=== PATIENT | male | born 1995 | race Caucasian/White ===

== ENCOUNTER 2023-03-04 21:28 | Emergency (ER) | payer SELFPAY ==
[2023-03-04 21:34] VITALS: BP 130/80; PULSE 95; RESP 16; TEMP 36.6; BMI 36.6
--- NOTE | 2023-03-04 21:44 | XR_ITS ---
[address] [address] Patient Name: DEBRA COSTELLO MRN: [id number] date: 1995 Sex: M Assigned Patient Location: ER Current Patient Location: ER Accession/Order Number: [id number] Exam Date: 03/04/2023 21:55 Report Date: 03/04/2023 22:20 At the request of: SALLIE TRENT Procedure: XR chest 2V EXAMINATION: XR chest 2V HISTORY: Cough and congestion COMPARISON: None. TECHNIQUE: PA and lateral chest x-rays FINDINGS: The lung parenchyma is free of consolidation or infiltrate. No pneumothorax or pleural effusion. The cardiac, mediastinal and hilar contours are normal. The visualized osseous structures exhibit no gross abnormality. XR/XR chest 2V IMPRESSION: No acute cardiopulmonary abnormality. Electronically authenticated by: SUNIL NOBLES Date: 03/04/2023 22:20
--- NOTE | 2023-03-04 21:45 | ED_ITS ---
HPI - URI/Sore Throat General Chief Complaint: Upper Respiratory Infection Stated Complaint: URTI Time Seen by Provider: 03/04/23 21:36 Source: patient Limitations: no limitations History of Present Illness HPI Narrative: presents complaining of cough, sweating and sore throat past couple of days. Exposed to sick child. Not short of breath. No fever, nausea. chest feels tight . Does not smoke cigarettes. Denies history of asthma MD elicited complaint: Reports cough and sore throat Related Data Home Medications Medication Instructions Recorded Confirmed lamotrigine 150 mg tablet 150 mg PO DAILY 03/04/23 03/04/23 oxybutynin chloride 5 mg tablet 5 mg PO DAILY 03/04/23 03/04/23 Allergies Allergy/AdvReac Type Severity Reaction Status Date / Time No Known Drug Allergies Allergy Verified 03/04/23 21:39 Review of Systems ROS Status of ROS 10 or more systems reviewed and unremarkable except as noted in history and below Exam Constitutional Vital Signs, click to edit/add: Last Vital Signs Temp 98 F 03/04/23 21:34 Pulse 95 H 03/04/23 21:34 Resp 16 03/04/23 21:34 BP 130/80 03/04/23 21:34 Common normals: no apparent distress, average body habitus, oriented x3, no limitations, healthy appearing, alert and well nourished [facility] Common normals: normocephalic and head/scalp atraumatic Eye Common normals: PERRL, EOMs intact bilaterally and conjunctivae normal Chest Common normals: inspection of chest normal Respiratory Common normals: normal respiratory effort, no retractions, no use of accessory muscles and clear to auscultation bilaterally Cardio Common normals: regular rate, regular rhythm, S1 normal heart sound and S2 normal heart sound GI Common normals: Normal to inspection, nondistended, normoactive bowel sounds present, soft to palpation and non-tender Extremity Common normals: normal to inspection and full ROM Neuro Common normals: oriented x3, CN's II-XII intact bilaterally, moves all extremities, no focal motor deficits and no sensory deficits noted Psych Appearance: grossly normal Course Vital Signs Vital signs: Vital Signs Temperature 98 F 03/04/23 21:34 Pulse Rate 95 H 03/04/23 21:34 Respiratory Rate 16 03/04/23 21:34 Blood Pressure 130/80 03/04/23 21:34 Temperature 98 F 03/04/23 21:34 Pulse Rate 95 H 03/04/23 21:34 Respiratory Rate 16 03/04/23 21:34 Blood Pressure 130/80 03/04/23 21:34 MDM - URI/Sore Throat MDM Narrative Medical decision making narrative: patient presents with recurrent cough and chest tightness. Not short of breath. Occ sweating but not febrile. Exam is normal. cxray is clear and respiratory panel and strep screen neg. Patient informed of diagnosis of URI and discharged home with an inhaler to use for his chest tightness Lab Data Labs: Lab Results 03/04/23 03/04/23 03/04/23 Range/Units 20:50 21:50 22:00 WBC 6.5 (4.0-11.0) 10^3/uL RBC 4.66 L (4.70-6.10) 10^6/uL Hgb 14.9 (14.0-18.0) g/dL Hct 41.2 L (42.0-54.0) % MCV 88.4 (80.0-94.0) fL MCH 32.0 (25.9-34.0) pg MCHC 36.2 H (29.9-35.2) g/dL RDW 11.5 (11.0-15.0) % Plt Count 202 (150-450) 10^3/uL MPV 9.4 L (9.5-13.5) fL Neut % (Auto) 53.0 (43.0-75.0) % Lymph % (Auto) 32.9 (20.5-60.0) % [place] % (Auto) 11.2 (1.7-12.0) % Eos % (Auto) 1.9 (0.9-7.0) % Baso % (Auto) 0.8 (0.2-2.0) % Neut # (Auto) 3.4 (1.4-6.5) 10^3/uL Lymph # (Auto) 2.1 (1.2-3.8) 10^3/uL [place] # (Auto) 0.7 (0.3-0.8) 10^3/uL Eos # (Auto) 0.1 (0.0-0.7) 10^3/uL Baso # (Auto) 0.1 (0.0-0.1) 10^3/uL Abs Immat Gran (auto) 0.01 (0.00-0.03) 10^3/uL Imm/Tot Granulo (auto) 0.2 (0.0-0.5) % Sodium 138 (136-145) mmol/L Potassium 3.6 (3.5-5.1) mmol/L Chloride 102 (98-107) mmol/L Carbon Dioxide 25.8 (21.0-32.0) mmol/L Anion Gap 13.8 BUN 22.0 H (7.0-18.0) mg/dL Creatinine 1.12 (0.70-1.30) mg/dL Est GFR ( Amer) >60 (>=60) Est GFR (Non-Af Amer) >60 (>=60) BUN/Creatinine Ratio 19.6 Glucose 156 H (74-106) mg/dL Calcium 9.0 (8.5-10.1) mg/dL Total Bilirubin 0.5 (0.2-1.0) mg/dL AST 18 (15-37) U/L ALT 26 (16-63) U/L Alkaline Phosphatase 78 (46-116) U/L Total Protein 7.8 (6.4-8.2) g/dL Albumin 4.1 (3.4-5.0) g/dL Globulin 3.7 g/dL Albumin/Globulin Ratio 1.1 Adenovirus (PCR) Not detected (NOT DETECTE) C. pneumoniae DNA (PCR) Not detected (NOT DETECTE) Coronavirus Type OC43 Not detected (NOT DETECTE) Coronavirus Type HKU1 Not detected (NOT DETECTE) Coronavirus Type 229E Not detected (NOT DETECTE) Coronavirus Type NL63 Not detected (NOT DETECTE) Human Metapneumovir PCR Not detected (NOT DETECTE) M. pneumoniae (PCR) Not detected (NOT DETECTE) Parainfluenza PCR Not detected (NOT DETECTE) Parainfluenza 2 (PCR) Not detected (NOT DETECTE) Parainfluenza 3 (PCR) Not detected (NOT DETECTE) Parainfluenza 4 (PCR) Not detected (NOT DETECTE) RSV (RT-PCR) Not detected (NOT DETECTE) Entero/Rhino (PCR) Not detected (NOT DETECTE) SARS-CoV-2 (PCR) Not detected (NOT DETECTE) Streptococcus Screen Negative Bordetella pertussis (PCR) Not detected (NOT DETECTE) B parapertussis DNA PCR Not detected (NOT DETECTE) Influenza Type A (PCR) Not detected (NOT DETECTE) Influenza Type B (PCR) Not detected (NOT DETECTE) Discharge Plan Discharge Chief Complaint: Upper Respiratory Infection Clinical Impression: Upper respiratory infection Patient Disposition: Home, Self-Care Prescriptions / Home Meds: No Action oxybutynin chloride 5 mg tablet 5 mg PO DAILY lamotrigine 150 mg tablet 150 mg PO DAILY Instructions: Upper Respiratory Infection (ED) Stand Alone Forms: Portal Instructions Referrals: Physician,Non-Staff, MD [Primary Care Provider] - 1 week
[2023-03-04 22:06] LABS: Basophils Absolute Auto 0.1 10^3/uL (0.0-0.1); Basophils Percent Auto 0.8 % (0.2-2.0); Eosinophils Absolute Auto 0.1 10^3/uL (0.0-0.7); Eosinophils Percent Auto 1.9 % (0.9-7.0); Hematocrit 41.2 % (42.0-54.0); Hemoglobin 14.9 g/dL (14.0-18.0); Immature Granulocytes Abs Auto 0.01 10^3/uL (0.00-0.03); Immature Granulocytes Pct Auto 0.2 % (0.0-0.5); Lymphocytes Absolute Auto 2.1 10^3/uL (1.2-3.8); Lymphocytes Percent Auto 32.9 % (20.5-60.0); Mean Corpuscular HGB Conc 36.2 g/dL (29.9-35.2); Mean Corpuscular Volume 88.4 fL (80.0-94.0); Mean Platelet Volume 9.4 fL (9.5-13.5); Monocytes Absolute Auto 0.7 10^3/uL (0.3-0.8); Monocytes Percent Auto 11.2 % (1.7-12.0); Neutrophils Absolute Auto 3.4 10^3/uL (1.4-6.5); Platelet Count 202 10^3/uL (150-450); Red Blood Count 4.66 10^6/uL (4.70-6.10); Red Cell Distribution Width 11.5 % (11.0-15.0); White Blood Count 6.5 10^3/uL (4.0-11.0)
[2023-03-04 22:12] LABS: Internal Control Within Normal Limits; Strep A Antigen Screen Negative
[2023-03-04 22:34] LABS: Alanine Aminotransferase 26 U/L (16-63); Albumin Globulin Ratio 1.1; Albumin Level 4.1 g/dL (3.4-5.0); Alkaline Phosphatase 78 U/L (46-116); Anion Gap 13.8; Aspartate Amino Transferase 18 U/L (15-37); BUN Creatinine Ratio 19.6; Bilirubin Total 0.5 mg/dL (0.2-1.0); Carbon Dioxide 25.8 mmol/L (21.0-32.0); Chloride 102 mmol/L (98-107); Estimated GFR (African America >60 (>=60); Estimated GFR (Non-African Ame >60 (>=60); Globulin 3.7 g/dL; Glucose 156 mg/dL (74-106); Potassium 3.6 mmol/L (3.5-5.1); Sodium 138 mmol/L (136-145); Total Protein 7.8 g/dL (6.4-8.2)
[2023-03-04 23:06] LABS: Adenovirus NOT DETECTED (NOT DETECTE); Bordetella parapertussis NOT DETECTED (NOT DETECTE); Coronavirus 229E NOT DETECTED (NOT DETECTE); Coronavirus HKU1 NOT DETECTED (NOT DETECTE); Coronavirus NL63 NOT DETECTED (NOT DETECTE); Coronavirus OC43 NOT DETECTED (NOT DETECTE); Human Metapneumovirus NOT DETECTED (NOT DETECTE); Human Rhinovirus/Enterovirus NOT DETECTED (NOT DETECTE); Influenza A NOT DETECTED (NOT DETECTE); Influenza B NOT DETECTED (NOT DETECTE); Mycoplasma pneumoniae NOT DETECTED (NOT DETECTE); Parainfluenza Virus 1 NOT DETECTED (NOT DETECTE); Parainfluenza Virus 2 NOT DETECTED (NOT DETECTE); Parainfluenza Virus 3 NOT DETECTED (NOT DETECTE); Parainfluenza Virus 4 NOT DETECTED (NOT DETECTE); Respiratory Syncytial Virus NOT DETECTED (NOT DETECTE); SARS-CoV-2 NOT DETECTED (NOT DETECTE)
[2023-03-05] MEDS: ALBUTEROL SULFATE 200 PUFF/6.7 GM INHALER IH (00:29)
== END 2023-03-05 00:39 | disposition home or self-care (01) ==
PROVIDERS: Emergency Provider Internal Medicine
DX: J06.9 Acute upper respiratory infection, unspecified (principal); Z20.822 Contact with and (suspected) exposure to COVID-19
CPT/HCPCS: 0202U; 36415; 71046; 80053; 85025; 87070; 87880; 99284

== ENCOUNTER 2023-04-05 20:28 | Emergency (ER) | payer SELFPAY ==
[2023-04-05 21:00] VITALS: BP 129/87; PULSE 83; RESP 16; TEMP 36.8; O2SAT 97; BMI 35.6
--- NOTE | 2023-04-05 22:38 | ED_ITS ---
HPI - Eye Problem General Chief complaint: Eye Problems Stated complaint: eye red Time Seen by Provider: 04/05/23 21:08 Source: patient Mode of arrival: walk-in Limitations: no limitations History of Present Illness HPI Narrative: patient presents complaining of pain about his right eye for the past 3-4 days. Becoming more painful. No fever. States vision if blurry in the AM but clears up and is normal now. Related Data Home Medications Medication Instructions Recorded Confirmed lamotrigine 150 mg tablet 150 mg PO DAILY 03/04/23 03/04/23 oxybutynin chloride 5 mg tablet 5 mg PO DAILY 03/04/23 03/04/23 Allergies Allergy/AdvReac Type Severity Reaction Status Date / Time No Known Drug Allergies Allergy Verified 03/04/23 21:39 Review of Systems ROS Status of ROS 10 or more systems reviewed and unremarkable except as noted in history and below [facility] Social History Smoking status: Never smoker Exam Constitutional Vital Signs, click to edit/add: Last Vital Signs Temp 98.3 F 04/05/23 21:00 Pulse 83 04/05/23 21:00 Resp 16 04/05/23 21:00 BP 129/87 04/05/23 21:00 Pulse Ox 97 04/05/23 21:00 O2 Del Method Room Air 04/05/23 21:00 Common normals: no apparent distress, oriented x3, no limitations, healthy ap pearing and well nourished [facility] Face and sinus images: 1. erythema and tenderness. mild swelling Nose: external nose normal Eye Common normals: PERRL and EOMs intact bilaterally Other: conjunctiva mildly injected Chest Common normals: inspection of chest normal and palpation of chest normal Respiratory Common normals: normal respiratory effort, no retractions and no use of accessory muscles Cardio Common normals: regular rate, regular rhythm, S1 normal heart sound and S2 normal heart sound GI Common normals: Normal to inspection, nondistended, normoactive bowel sounds present, soft to palpation and non-tender Extremity Common normals: normal to inspection and full ROM Neuro Common normals: oriented x3, CN's II-XII intact bilaterally, moves all extremities, no focal motor deficits and no sensory deficits noted Psych Appearance: grossly normal Course Vital Signs Vital signs: Vital Signs Temperature 98.3 F 04/05/23 21:00 Pulse Rate 83 04/05/23 21:00 Respiratory Rate 16 04/05/23 21:00 Blood Pressure 129/87 04/05/23 21:00 Pulse Oximetry 97 04/05/23 21:00 Oxygen Delivery Method Room Air 04/05/23 21:00 Temperature 98.3 F 04/05/23 21:00 Pulse Rate 83 04/05/23 21:00 Respiratory Rate 16 04/05/23 21:00 Blood Pressure 129/87 04/05/23 21:00 Pulse Oximetry 97 04/05/23 21:00 Oxygen Delivery Method Room Air 04/05/23 21:00 MDM - Eye Problem MDM Narrative Medical decision making narrative: patient presents with pain and swelling about the right eye. found to have erythema and mild swelling inferior periorbital. CT with findings confirming cellulitis. patient treated with IV Unasyn and discharged home with a prescription of Augmentin and is advised to follow up with his family doctor Lab Data Labs: Lab Results 04/05/23 Range/Units 22:49 WBC 8.9 (4.0-11.0) 10^3/uL RBC 4.82 (4.70-6.10) 10^6/uL Hgb 15.2 (14.0-18.0) g/dL Hct 42.4 (42.0-54.0) % MCV 88.0 (80.0-94.0) fL MCH 31.5 (25.9-34.0) pg MCHC 35.8 H (29.9-35.2) g/dL RDW 11.7 (11.0-15.0) % Plt Count 206 (150-450) 10^3/uL MPV 9.6 (9.5-13.5) fL Neut % (Auto) 62.5 (43.0-75.0) % Lymph % (Auto) 27.2 (20.5-60.0) % [place] % (Auto) 8.6 (1.7-12.0) % Eos % (Auto) 1.1 (0.9-7.0) % Baso % (Auto) 0.4 (0.2-2.0) % Neut # (Auto) 5.6 (1.4-6.5) 10^3/uL Lymph # (Auto) 2.4 (1.2-3.8) 10^3/uL [place] # (Auto) 0.8 (0.3-0.8) 10^3/uL Eos # (Auto) 0.1 (0.0-0.7) 10^3/uL Baso # (Auto) 0.0 (0.0-0.1) 10^3/uL Abs Immat Gran (auto) 0.02 (0.00-0.03) 10^3/uL Imm/Tot Granulo (auto) 0.2 (0.0-0.5) % Sodium 137 (136-145) mmol/L Potassium 3.8 (3.5-5.1) mmol/L Chloride 102 (98-107) mmol/L Carbon Dioxide 26.1 (21.0-32.0) mmol/L Anion Gap 12.7 BUN 16.0 (7.0-18.0) mg/dL Creatinine 1.02 (0.70-1.30) mg/dL Est GFR ( Amer) >60 (>=60) Est GFR (Non-Af Amer) >60 (>=60) BUN/Creatinine Ratio 15.7 Glucose 159 H (74-106) mg/dL Calcium 9.0 (8.5-10.1) mg/dL Imaging Data CT scan - head: Radiologist's impression: The [address] [address] [address] Scan Report Signed Patient: DEBRA COSTELLO MR#: [id number] : 1995 Acct:[id number] Age/Sex: 27 / M ADM Date: 04/05/23 Loc: ER Attending Dr: Ordering Physician: Glynn Gray Date of Service: 04/05/23 Procedure(s): CT facial bones w con Accession Number(s): [id number] cc: Physician,Non-Staff M.D.~ The [address] [address] Patient Name: DEBRA COSTELLO MRN: [id number] date: 1995 Sex: M Assigned Patient Location: ER Current Patient Location: ER Accession/Order Number: [id number] Exam Date: 04/05/2023 23:05 Report Date: 04/06/2023 00:02 At the request of: GLYNN GRAY Procedure: CT facial bones w con CT facial bones w con INDICATION: 27 years old; Male . Symptom/Location/Duration: right periorbital cellulitis TECHNIQUE: CT of the facial bones was performed. IV contrast: 100 mL of Omnipaque 300 was injected intravenously without complication.. Axial, coronal, sagittal reformats were created and reviewed. Dose reduction techniques were achieved by using automated exposure control and/or adjustment of mA and/or kV according to patient size and/or use of iterative reconstruction technique. COMPARISON: None FINDINGS: FRONTAL BONES: SUPRAORBITAL SOFT TISSUES: Normal without swelling, laceration or foreign body. ORBITS: Globes: Normal without proptosis or evidence of disruption or intraocular foreign body. Retrobulbar fat: normal without mass or hematoma. Extraocular Muscles: Normal and symmetric without prolapse or evidence of entrapment. Optic Nerves: Normal without mass-effect or evidence of disruption. Preseptal Soft Tissues: Mild preseptal/periorbital soft tissue swelling on the right. No drainable fluid collection. [place]: No orbital wall fracture or bony dehiscence is appreciated. MAXILLA AND MANDIBLE: Maxillary and buccal soft tissues: Normal without swelling, laceration or foreign body. Maxillary bones: Intact bilaterally without fracture or avulsed teeth. Dental caries involving posterior molars. Mandible: Intact bilaterally without fracture, dislocation or avulsed teeth. Impacted posterior molar on the right. Periapical lucency with dental caries and loss of tooth crowns involving posterior molar on the left. TMJ are bilaterally symmetric. Nasal bones and septum: No fracture is seen. There is S-shaped nasal septal deviation to the right to the right anteriorly and the left posteriorly with a spur projecting to the left. Maxillary spine is intact. PARANASAL SINUSES: Frontal: Clear. Ethmoid: Clear. Maxillary: Maxillary sinus thickening. No fluid levels. Sphenoid: Clear. Zygomatic arch: Intact bilaterally. Pterygoid plates: Intact bilaterally. Visualized brain: A portion of the brain is included in this examination. No focal lesions or pathologic enhancement is seen. Partially empty sella is noted. The study does not include the entire brain and cannot exclude all brain pathology. Visualized cervical spine: A portion of the upper cervical spine is included which has a normal appearance. The study does not clear the cervical spine. CT/CT facial bones w con IMPRESSION: 1. Mild preseptal/periorbital soft tissue swelling on the right. No drainable fluid collection. No post septal swelling or fluid collection is seen. 2. Poor dentition. 3. Nasal septal deviation. 4. Maxillary sinus thickening. Discharge Plan Discharge Chief Complaint: Eye Problems Clinical Impression: Cellulitis of face Patient Disposition: Home, Self-Care Prescriptions / Home Meds: No Action oxybutynin chloride 5 mg tablet 5 mg PO DAILY lamotrigine 150 mg tablet 150 mg PO DAILY Instructions: Cellulitis (ED) Additional Instructions: follow up with your doctor this week. Return if increased swelling/pain Stand Alone Forms: Portal Instructions Referrals: Physician,Non-Staff, MD [Primary Care Provider] - 1 week
[2023-04-05 23:05] LABS: Basophils Percent Auto 0.4 % (0.2-2.0); Eosinophils Absolute Auto 0.1 10^3/uL (0.0-0.7); Eosinophils Percent Auto 1.1 % (0.9-7.0); Hematocrit 42.4 % (42.0-54.0); Hemoglobin 15.2 g/dL (14.0-18.0); Immature Granulocytes Abs Auto 0.02 10^3/uL (0.00-0.03); Immature Granulocytes Pct Auto 0.2 % (0.0-0.5); Lymphocytes Absolute Auto 2.4 10^3/uL (1.2-3.8); Lymphocytes Percent Auto 27.2 % (20.5-60.0); Mean Corpuscular HGB Conc 35.8 g/dL (29.9-35.2); Mean Corpuscular Hemoglobin 31.5 pg (25.9-34.0); Mean Platelet Volume 9.6 fL (9.5-13.5); Monocytes Absolute Auto 0.8 10^3/uL (0.3-0.8); Monocytes Percent Auto 8.6 % (1.7-12.0); Neutrophils Absolute Auto 5.6 10^3/uL (1.4-6.5); Neutrophils Percent Auto 62.5 % (43.0-75.0); Platelet Count 206 10^3/uL (150-450); Red Blood Count 4.82 10^6/uL (4.70-6.10); Red Cell Distribution Width 11.7 % (11.0-15.0); White Blood Count 8.9 10^3/uL (4.0-11.0)
[2023-04-05 23:14] LABS: Anion Gap 12.7; BUN Creatinine Ratio 15.7; Carbon Dioxide 26.1 mmol/L (21.0-32.0); Chloride 102 mmol/L (98-107); Estimated GFR (African America >60 (>=60); Estimated GFR (Non-African Ame >60 (>=60); Glucose 159 mg/dL (74-106); Potassium 3.8 mmol/L (3.5-5.1); Sodium 137 mmol/L (136-145)
[2023-04-05] MEDS: SULBACTAM NA IV (23:20)
[2023-04-05] MEDS: AMPICILLIN SODIUM IV (23:20)
[2023-04-05] MEDS: SODIUM CHLORIDE 0.9% IV (23:20)
[2023-04-06] MEDS: AMOXICILLIN/POTASSIUM CLAV 1 TAB TABLET PO (00:54)
== END 2023-04-06 01:00 | disposition home or self-care (01) ==
PROVIDERS: Emergency Provider Internal Medicine
DX: L03.211 Cellulitis of face (principal); Z79.899 Other long term (current) drug therapy
CPT/HCPCS: 36415; 70487; 80048; 85025; 96365; 99285; Q9967

== ENCOUNTER 2023-06-20 11:15 | Emergency (ER) | payer SELFPAY ==
[2023-06-20 11:19] VITALS: BP 148/80; PULSE 74; RESP 20; TEMP 36.5; O2SAT 97; BMI 34.7
--- OUTSIDE RECORDS SUMMARY | 2023-06-20 11:24 | XMS_ITS | CCD ---
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 Payer Category Payer Unknown [id number] 1995 Unknown [id number] 1993 Unknown [id number] 1993 Unknown [id number] Social History Date Type Detail Facility Start: 03-06-2017 Smokes tobacco daily (finding) [facility] Comment on above: chews a half a can a day Male [facility] Tobacco Oral [facility] Tobacco smoking status No Smokin g Status Entered [facility] Functional Status Date Assessment Result Facility 12-14-2021 Functional Status N/A [facility] Clinical Notes 10-14-2021 to 04-13-2023 Note Date & Type Note Facility 04-13-2023 Evaluation note Encounter Date Diagnosis Assessment Notes Mar, Hyperglycemia (ICD-10 - R73.9) Did check A1c in office today as he had a severely elevated blood sugar reading historically. I did make him aware of normal A1c in office today. Mar, Mood disorder (ICD-10 - F39) Continue medication as prescribed. Emotional and motivational support given today. Discussed side effects which are typical, adverse reactions and when to report to ER. Doing well on the medication. Will continue moving forward. Mar, Weight gain (ICD-10 - R63.5) Lengthy discussion regarding dietary changes to be made. Lives a fairly active lifestyle. Has quite a bit of sodium and carbohydrates in the diet. States he prefers pasta daily. Does drink quite a bit of propel water which does have high sodium content. Much dietary education provided in office today. Mar, Other *Progress note was completed with the assistance of voice recognition software for dictation purposes. Please excuse any grammatical errors that were not corrected during review process. [facility] Other 11-16-2023 Evaluation note* Encounter Date Diagnosis Assessment Notes Treatment Notes Treatment Clinical Notes Mar, Mood disorder (ICD-10 - F39) Much emotional, motivational and educational support given today. Significant other is supportive and in the room during the visit. Ideally I would like him to see counseling however he politely declines. I am agreeable to increasing the Lamictal to 200 mg for 4 weeks and following up in office. He is aware of red flags and when to follow-up in office sooner or report to ER. At 200 mg if patient does not feel significant resolution of symptoms with mood stability, I will refer him out to psychiatry. Patient verbalizes understanding. Mar, Hyperhydrosis disorder (ICD-10 - L74.519) I explained to him that I do not want him to take medication other than how it is prescribed. I did discuss with him that I will write the 15 mg extended release dosage to see if he gets better relief of symptoms as needed. Mar, Elevated random blood glucose level (ICD-10 - R73.09) Explained to patient that likely the episodes of fatigue and shakiness did improve with food could be hypoglycemic event secondary to prediabetes or insulin resistance. I also explained that the excessive sweating and anxious/irritable disposition are also exacerbated by the excessive amounts of caffeine that he intakes on a regular basis. We have discussed trying to wean off the Mountain Dew. In the interest of time, I cannot check A1c in office today however I do want him to follow-up in 3 weeks and we will do A1c at that time. Patient verbalizes understanding. I do have concerns for underlying insulin resistance and/or prediabetes/diabet es. I have spent 40 minutes with/on this patient and over 50% of the visit was counseling done by myself, Kathleen DICKENS. Mar, Other *Progress note was completed with the assistance of voice recognition software for dictation purposes. Please excuse any grammatical errors that were not corrected during review process. [facility] Other 10-24-2023 Evaluation note* Encounter Date Diagnosis Assessment Notes Treatment Notes Treatment Clinical Notes Feb, Mood disorder (ICD-10 - F39) [facility] Other 09-06-2023 Hospital Discharge instructions Follow Up Care 01/19/2023 09:21:56 With:NANDA REYNOSO, Sergei Myers, URL Address: [address] [place] [id number] [address]- When: Unknown [facility] 07-12-2023 Evaluation note* Encounter Date Diagnosis Assessment Notes Treatment Notes Treatment Clinical Notes Nov, Mood disorder (ICD-10 - F39) Discussed Lamictal at length. Will finish the last 7 days of 100 mg dosing and then increase to 150 mg for 30 days with 2 refills. Will need to continue to monitor and follow-up routinely. Reiterated side effects of medication, red flags and when to follow-up sooner if needed. Emotional and motivational support given today. Nov, Hyperhydrosis disorder (ICD-10 - L74.519) Discussed the hyperhidrosis. Patient seems to have a good grasp on the medication and what to monitor. Will refill x1 year. Nothing further needed at this time. Nov, Sleep disturbance (ICD-10 - G47.9) Discussed the sleep disturbance at length. Could trial hydroxyzine earlier on in the evening as he was taking it very very late at night. Discussed sleep hygiene, sleep routine, melatonin, supplements and plan moving forward. Patient verbalizes understanding Nov, Elevated random blood glucose level (ICD-10 - R73.09) Did briefly discuss on the randomize glucose level which he was unaware of the exact level. I did explain that we will need to follow-up with this at a later date based on the interest of time. He is stable today from endocrine perspective and does not need immediate evaluation by emergency department. Also made him aware that he needs to cut out the excessive daily Mountain Dew intake. Nov, Other I have spent 45 minutes with this patient and over 50% of the visit was counseling done by myself, Kathleen DICKENS. *Progress note was completed with the assistance of voice recognition software for dictation purposes. Please excuse any grammatical errors that were not corrected during review process. [facility] Other 05-31-2023 Evaluation note* Encounter Date Diagnosis Assessment Notes Treatment Notes Treatment Clinical Notes September, Mood swings (ICD-10 - R45.86) Discussed mental health at length. I did print the mood disorder questionnaire provided to patient office today. I would like him to take this home, complete the questionnaire and return in 1 to 2 weeks for further evaluation. Is reported current symptoms, feeling of SSRI and history to lead me to believe there is high potential for mood disorder such as bipolar depression. September, Other We have discuss ed the necessity of following up with PCP regularly as well as specialists, as needed. Discussed F/U with dentistry and optometry at least yearly. Discussed all preventative measures/ cancer screenings as applicable to this patient. Emphasized the importance of a reduced fat, low carb diet to promote heart health and controlled blood sugars. Reviewed social history and ensured patient is safe within the home today. I have ensured patient is of stable mental and physical health today. We have discussed appropriate F/U schedule as well as blood work and vaccinations that apply. All questions answered and patient is sent home pleased, without concerns. I have spent 45 minutes with this patient and over 50% of the visit was counseling done by myself, Kathleen DICKENS. [place] [employer] Other 08-02-2022 Hospital Discharge instructions Patient Education 12/14/2021 23:26:42 Head Injury, Adult Head Injury, Adult There are many types of head injuries. Head injuries can be as minor as a bump, or they can be a serious medical issue. More severe head injuries include: A jarring injury to the brain (concussion). A bruise (contusion) of the brain. This means there is bleeding in the brain that can cause swelling. A cracked skull (skull fracture). Bleeding in the brain that collects, clots, and forms a bump (hematoma). After a head injury, most problems occur within the first 24 hours, but side effects may occur up to 7 10 days after the injury. It is important to watch your condition for any changes. You may need to be observed in the emergency department or urgent care, or you may be admitted to the hospital. What are the causes? There are many possible causes of a head injury. A serious head injury may be caused by a car accident, bicycle or motorcycle accidents, sports injuries, and falls. What are the symptoms? Symptoms of a head injury include a contusion, bump, or bleeding at the site of the injury. Other physical symptoms may include: Headache. Nausea or vomiting. Dizziness. Feeling tired. Being uncomfortable around bright lights or loud noises. Seizures. Trouble being awakened. Fainting. Mental or emotional symptoms may include: Irritability. Confusion and memory problems. Poor attention and concentration. Changes in eating or sleeping habits. Anxiety or depression. How is this diagnosed? This condition can usually be diagnosed based on your symptoms, a description of the injury, and a physical exam. You may also have imaging tests done, such as a CT scan or MRI. How is this treated? Treatment for this condition depends on the severity and type of injury you have. The main goal of treatment is to prevent complications and to allow the brain time to heal. Mild head injury If you have a mild head injury, you may be sent home and treatment may include: Observation. A responsible adult should stay with you for 24 hours after your injury and check on you often. Physical rest. Brain rest. Pain medicines. Severe head injury If you have a severe head injury, treatment may include: Close observation. This includes hospitalization with frequent physical exams. Medicines to relieve pain, prevent seizures, and decrease brain swelling. Breathing support. This may include using a ventilator. Treatments to manage the swelling inside the brain. Brain surgery. This may be needed to: ?Remove a blood clot. ?Stop the bleeding. ?Remove a part of the skull to allow room for the brain to swell. Follow these instructions at home: Activity Rest and avoid activities that are physically hard or tiring. Make sure you get enough sleep. Limit activities that require a lot of thought or attention, such as: ?Watching TV. ?Playing memory games and puzzles. ?Job-related work or homework. ?Working on the computer, using social media, and texting. Avoid activities that could cause another head injury, such as playing sports, until your health care provider approves. Having another head injury, especially before the first one has healed, can bedangerous. Ask your health care provider when it is safe for you to return to your regular activities, including work or school. Ask your health care provider for a sliv-mz-qpup plan for gradually returning to activities. Ask your health care provider when you can drive, ride a bicycle, or use heavy machinery. Your ability to react may be slower after a brain injury. Do not do these activities if you are dizzy. Lifestyle Do not drink alcohol until your health care provider approves. Do not use drugs. Alcohol and certain drugs may slow your recovery and can put you at risk of further injury. If it is harder than usual to remember things, write them down. If you are easily distracted, try to do one thing at a time. Talk with family members or close friends when making important decisions. Tell your friends, family, a trusted colleague, and apron worker about your injury, symptoms, and restrictions. Have them watch for any new or worsening problems. General instructions Take wbgp-uhh-ridsbam and prescription medicines only as told by your health care provider. Have someone stay with you for 24 hours after your head injury. This person should watch you for any changes in your symptoms and be ready to seek medical help. Keep all follow-up visits as told by your health care provider. This is important. How is this prevented? Work on improving your balance and strength to avoid falls. Wear a seatbelt when you are in a moving vehicle. Wear a helmet when riding a bicycle, skiing, or doing any other sport or activity that has a risk of injury. If you drink alcohol: ?Limit how much you use to: ?0 1 drink a day for women. ?0 2 drinks a day for men. ?Be aware of how much alcohol is in your drink. In the [place] one drink equals one 12 oz bottle of beer (355 mL), one 5 oz glass of wine (148 mL), or one 1 oz glass of hard liquor (44 mL). Take safety measures in your home, such as: ?Removing clutter and tripping hazards from floors and stairways. ?Using grab bars in bathrooms and handrails by stairs. ?Placing non-slip mats on floors and in bathtubs. ?Improving lighting in dim areas. Get help right away if: You have: ?A severe headache that is not helped by medicine. ?Trouble walking or weakness in your arms and legs. ?Clear or bloody fluid coming from your nose or ears. ?Changes in your vision. ?A seizure. You lose your balance. You vomit. Your pupils change size. Your speech is slurred. Your dizziness gets worse. You faint. You are sleepier than normal and have trouble staying awake. Your symptoms get worse. These symptoms may represent a serious problem that is an emergency. Do not wait to see if the symptoms will go away. Get medical help right away. Call your local emergency services (911 in the [place] Do not drive yourself to the hospital. Summary Head injuries can be minor or they can be a serious medical issue requiring immediate attention. Treatment for this condition depends on the severity and type of injury you have. Ask your health care provider when it is safe for you to return to your regular activities, including work or school. Head injury prevention includes wearing a seat belt in a motor vehicle, using a helmet on a bicycle, limiting alcohol use, and taking safety measures in your home. This information is not intended to replace advice given to you by your health care provider. Make sure you discuss any questions you have with your health care provider. Document Released: 05/02/2006 Document Revised: 05/30/2019 Document Reviewed: 05/25/2019 [employer] Patient Education 2019 [employer]. 12/14/2021 23:26:42 COVID-19 COVID-19 COVID-19 is a respiratory infection that is caused by a virus called severe acute respiratory syndrome coronavirus 2 (SARS-CoV-2). The disease is also known as coronavirus disease or novel coronavirus. In some people, the virus may not cause any symptoms. In others, it may cause a serious infection. The infection can get worse quickly and can lead to complications, such as: Pneumonia, or infection of the lungs. Acute respiratory distress syndrome or ARDS. This is fluid build-up in the lungs. Acute respiratory failure. This is a condition in which there is not enough oxygen passing from thelungs to the body. Sepsis or septic shock. This is a serious bodily reaction to an infection. Blood clotting problems. Secondary infections due to bacteria or fungus. The virus that causes COVID-19 is contagious. This means that it can spread from person to person through droplets from coughs and sneezes (respiratory secretions). What are the causes? This illness is caused by a virus. You may catch the virus by: Breathing in droplets from an infected person's cough or sneeze. Touching something, like a table or a doorknob, that was exposed to the virus (contaminated) and then touching your mouth, nose, or eyes. What increases the risk? Risk for infection You are more likely to be infected with this virus if you: Live in or travel to an area with a COVID-19 outbreak. Come in contact with a sick person who recently traveled to an area with a COVID-19 outbreak. Provide care for or live with a person who is infected with COVID-19. Risk for serious illness You are more likely to become seriously ill from the virus if you: Are 65 years of age or older. Have a long-term disease that lowers your body's ability to fight infection (immunocompromised). Live in a snf or long-term care facility. Have a long-term (chronic) disease such as: ?Chronic lung disease, including chronic obstructive pulmonary disease or asthma ?Heart disease. ?Diabetes. ?Chronic kidney disease. ?Liver disease. Are obese. What are the signs or symptoms? Symptoms of this condition can range from mild to severe. Symptoms may appear any time from 2 to 14days after being exposed to the virus. They include: A fever. A cough. Difficulty breathing. Chills. Muscle pains. A sore throat. Loss of taste or smell. Some people may also have stomach problems, such as nausea, vomiting, or diarrhea. Other people may not have any symptoms of COVID-19. How is this diagnosed? This condition may be diagnosed based on: Your signs and symptoms, especially if: ?You live in an area with a COVID-19 outbreak. ?You recently traveled to or from an area where the virus is common. ?You provide care for or live with a person who was diagnosed with COVID-19. A physical exam. Lab tests, which may include: ?A nasal swab to take a sample of fluid from your nose. ?A throat swab to take a sample of fluid from your throat. ?A sample of mucus from your lungs (sputum). ?Blood tests. Imaging tests, which may include, X-rays, CT scan, or ultrasound. How is this treated? At present, there is no medicine to treat COVID-19. Medicines that treat other diseases are being used on a trial basis to see if they are effective against COVID-19. Your health care provider will talk with you about ways to treat your symptoms. For most people, the infection is mild and can be managed at home with rest, fluids, and pidu-ats-kbuvzaa medicines. Treatment for a serious infection usually takes places in a hospital intensive care unit (ICU). It may include one or more of the following treatments. These treatments are given until your symptoms improve. Receiving fluids and medicines through an IV. Supplemental oxygen. Extra oxygen is given through a tube in the nose, a face mask, or a baker. Positioning you to lie on your stomach (prone position). This makes it easier for oxygen to get into the lungs. Continuous positive airway pressure (CPAP) or bi-level positive airway pressure (BPAP) machine. This treatment uses mild air pressure to keep the airways open. A tube that is connected to a motor delivers oxygen to the body. Ventilator. This treatment moves air into and out of the lungs by using a tube that is placed in your windpipe. Tracheostomy. This is a procedure to create a hole in the neck so that a breathing tube can be inserted. Extracorporeal membrane oxygenation (ECMO). This procedure gives the lungs a chance to recover by taking over the functions of the heart and lungs. It supplies oxygen to the body and removes carbon dioxide. Follow these instructions at home: Lifestyle If you are sick, stay home except to get medical care. Your health care provider will tell you how long to stay home. Call your health care provider before you go for medical care. Rest at home as told by your health care provider. Do not use any products that contain nicotine or tobacco, such as cigarettes, e- cigarettes, and chewing tobacco. If you need help quitting, ask your health care provider. Return to your normal activities as told by your health care provider. Ask your health care provider what activities are safe for you. General instructions Take ruqf-gqu-zjreogv and prescription medicines only as told by your health care provider. Drink enough fluid to keep your urine pale yellow. Keep all follow-up visits as told by your health care provider. This is important. How is this prevented? There is no vaccine to help prevent COVID-19 infection. However, there are steps you can take to protect yourself and others from this virus. To protect yourself: Do not travel to areas where COVID-19 is a risk. The areas where COVID-19 is reported change often.To identify high-risk areas and travel restrictions, check the CDC travel website: wwwnc.cdc.gov/travel/notices If you live in, or must travel to, an area where COVID-19 is a risk, take precautions to avoid infection. ?Stay away from people who are sick. ?Wash your hands often with soap and water for 20 seconds. If soap and water are not available, usean alcohol-based hand physician industrial. ?Avoid touching your mouth, face, eyes, or nose. ?Avoid going out in public, follow guidance from your state and local health authorities. ?If you must go out in public, wear a cloth face covering or face mask. ?Disinfect objects and surfaces that are frequently touched every day. This may include: ?Counters and tables. ?Doorknobs and light switches. ?Sinks and faucets. ?Electronics, such as phones, remote controls, keyboards, computers, and tablets. To protect others: If you have symptoms of COVID-19, take steps to prevent the virus from spreading to others. If you think you have a COVID-19 infection, contact your health care provider right away. Tell yourhealth care team that you think you may have a COVID-19 infection. Stay home. Leave your house only to seek medical care. Do not use public transport. Do not travel while you are sick. Wash your hands often with soap and water for 20 seconds. If soap and water are not available, use alcohol-based hand physician industrial. Stay away from other members of your household. Let healthy household members care for children andpets, if possible. If you have to care for children or pets, wash your hands often and wear a mask.If possible, stay in your own room, separate from others. Use a different bathroom. Make sure that all people in your household wash their hands well and often. Cough or sneeze into a tissue or your sleeve or elbow. Do not cough or sneeze into your hand or into the air. Wear a cloth face covering or face mask. Where to find more information Centers for Disease Control and Prevention: www.cdc.gov/coronavirus/2019-ncov/index.html World Health Organization: www.who.int/health-topics/coronavirus Contact a health care provider if: You live in or have traveled to an area where COVID-19 is a risk and you have symptoms of the infection. You have had contact with someone who has COVID-19 and you have symptoms of the infection. Get help right away if: You have trouble breathing. You have pain or pressure in your chest. You have confusion. You have bluish lips and fingernails. You have difficulty waking from sleep. You have symptoms that get worse. These symptoms may represent a serious problem that is an emergency. Do not wait to see if the symptoms will go away. Get medical help right away. Call your local emergency services (911 in the [place] Do not drive yourself to the hospital. Let the emergency medical personnel know if you think you have COVID-19. Summary COVID-19 is a respiratory infection that is caused by a virus. It is also known as coronavirus disease or novel coronavirus. It can cause serious infections, such as pneumonia, acute respiratory distress syndrome, acute respiratory failure, or sepsis. The virus that causes COVID-19 is contagious. This means that it can spread from person to person through droplets from coughs and sneezes. You are more likely to develop a serious illness if you are 65 years of age or older, have a weak immunity, live in a snf, or have chronic disease. There is no medicine to treat COVID-19. Your health care provider will talk with you about ways to treat your symptoms. Take steps to protect yourself and others from infection. Wash your hands often and disinfect objects and surfaces that are frequently touched every day. Stay away from people who are sick and wear amask if you are sick. This information is not intended to replace advice given to you by your health care provider. Make sure you discuss any questions you have with your health care provider. Document Released: 06/07/2019 Document Revised: 09/27/2019 Document Reviewed: 06/07/2019 [employer] Patient Education 2019 [employer]. Follow Up Care 12/14/2021 21:29:15 With:Shantanu De La Rosa Address: [address] [place] [id number] Business (1) When:12/21/2021 [facility]08-01-2022 Evaluation + Plan noteExtracted from: Title:ED Note Author:Tremaine Parker DO Date :12/14/21 Acute COVID-19 (U07.1: COVID -19) Cervical strain (S16.1XXA: Strain of muscle, fascia and tendon at neck level, initial encounter) CHI (closed head injury) (S09.90XA: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
--- NOTE | 2023-06-20 12:39 | PC.NURSE ---
Left ear irrigated with warm water and H2o2, several flakes land in basin. Pt reports he is feeling better.
[2023-06-20] MEDS: DOCUSATE SODIUM 100 MG CAPSULE PO (12:46)
--- NOTE | 2023-06-20 13:19 | ED_ITS ---
HPI - Ear Problem General Chief complaint: Ear Stated complaint: UPPER EXTREMITY PAIN Time Seen by Provider: 06/20/23 11:17 Source: patient Mode of arrival: walk-in Limitations: no limitations Related Data Home Medications Medication Instructions Recorded Confirmed lamotrigine 150 mg tablet 150 mg PO DAILY 03/04/23 03/04/23 oxybutynin chloride 5 mg tablet 5 mg PO DAILY 03/04/23 03/04/23 Allergies Allergy/AdvReac Type Severity Reaction Status Date / Time No Known Drug Allergies Allergy Verified 03/04/23 21:39 PFSH PFSH Social History Smoking status: Never smoker Exam Constitutional Vital Signs, click to edit/add: Last Vital Signs Temp 97.7 F 06/20/23 11:19 Pulse 74 06/20/23 11:19 Resp 20 06/20/23 11:19 BP 148/80 H 06/20/23 11:19 Pulse Ox 97 06/20/23 11:19 O2 Del Method Room Air 06/20/23 11:19 Course Vital Signs Vital signs: Vital Signs Temperature 97.7 F 06/20/23 11:19 Pulse Rate 74 06/20/23 11:19 Respiratory Rate 20 06/20/23 11:19 Blood Pressure 148/80 H 06/20/23 11:19 Pulse Oximetry 97 06/20/23 11:19 Oxygen Delivery Method Room Air 06/20/23 11:19 Temperature 97.7 F 06/20/23 11:19 Pulse Rate 74 06/20/23 11:19 Respiratory Rate 20 06/20/23 11:19 Blood Pressure 148/80 H 06/20/23 11:19 Pulse Oximetry 97 06/20/23 11:19 Oxygen Delivery Method Room Air 06/20/23 11:19 Medical Decision Making MDM Narrative Medical decision making narrative: Your case in the ER was carried out by nursing staff with removal of some wax. He will use ikps-qwd-xwfxoqf earwax dissolving drops. Treatment diagnosis and follow-up were discussed with the patient. There is no clinical evidence of otitis externa. Differential Diagnosis Differential Diagnosis: Cerumen impaction, otitis externa Discharge Plan Discharge Chief Complaint: Ear Clinical Impression: Cerumen impaction Patient Disposition: Home, Self-Care Time of Disposition Decision: 13:19 Condition: Good Mode of Transportation: Private Vehicle Prescriptions / Home Meds: No Action oxybutynin chloride 5 mg tablet 5 mg PO DAILY lamotrigine 150 mg tablet 150 mg PO DAILY Instructions: Triethanolamine Polypeptide Oleate (Into the ear) (Cerumenex), Carbamide Peroxide (Into the ear) (Plate And Frame Filter Operator's Choice, Debrox,... Stand Alone Forms: Portal Instructions Referrals: Physician,Non-Staff, MD [Primary Care Provider] - 1 week
== END 2023-06-20 13:31 | disposition home or self-care (01) ==
PROVIDERS: Emergency Provider Emergency Medicine
DX: H61.20 Impacted cerumen, unspecified ear (principal); Z79.899 Other long term (current) drug therapy
CPT/HCPCS: 99282

== ENCOUNTER 2024-08-03 11:39 | Emergency (ER) | payer SELFPAY ==
[2024-08-03 11:45] VITALS: BP 141/79; PULSE 83; TEMP 36.7; O2SAT 96; BMI 32.7
[2024-08-03] MEDS: KETOROLAC TROMETHAMINE 60 MG/2 ML VIAL IM (12:11)
--- NOTE | 2024-08-03 12:51 | ED_ITS ---
HPI HPI - Extremity Injury (Lower) General Chief Complaint: Extremity Injury, Lower Stated Complaint: HIP AND GROIN PAIN Time Seen by Provider: 08/03/24 11:56 Source: patient Mode of arrival: walk-in History of Present Illness HPI Narrative: The patient has come to the ER with multiple hip pain complaining mostly he mentioned that he has been having right and left hip pain mostly when he is abducting his left hip, and he mentioned that he usually carry heavy objects and he is worried about having hernia Denies any nausea nor vomiting any change bowel movement Related Data Home Medications ?Medication ?Instructions ?Recorded ?Confirmed lamotrigine 150 mg tablet 150 mg PO DAILY 03/04/23 08/03/24 oxybutynin chloride 5 mg tablet 5 mg PO DAILY 03/04/23 08/03/24 Previous Rx's ?Medication ?Instructions ?Recorded diclofenac sodium 75 mg 75 mg PO BID PRN pain #20 tabs 08/03/24 tablet,delayed release Allergies Allergy/AdvReac Type Severity Reaction Status Date / Time No Known Drug Allergies Allergy Verified 08/03/24 11:44 Opioid HPI Opioid Management Most Recent Pain and Opioid Data: Last Pain Scale 3 03/04/23 21:50 03/04/23 Review of Systems ROS Status of ROS 10 or more systems reviewed and unremark able except as noted in history and below PFSH PFSH Social History Smoking status: Never smoker Little interest or pleasure in doing things: not at all Feeling down, depressed, or hopeless: not at all Exam Narrative Exam Narrative: Nurses notes and vital signs reviewed and patient is not hypoxic. General: Well-appearing and in no apparent distress. Skin: Warm, dry, no pallor noted. No rash. Head: Normocephalic, atraumatic. Neck: Supple, non-tender. Eye: Pupils are equal, round and EOMI. No scleral icterus. Ears, Nose, Mouth, and Throat: TM are clear, no nasal mucosal hypertrophy. Oral mucosa is moist, no posterior oropharynx erythema, uvula is mid-line Cardiovascular: Regular Rate and Rhythm without murmur, gallop or rub. Respiratory: No accessory muscle use or respiratory distress. Lungs are clear to auscultation, no wheezing, rales or rhonchi Chest Wall: no tenderness Back: No midline thoracic or lumbar vertebral tenderness. No CVA tenderness Musculoskeletal: normal ROM, no calf or popliteal tenderness, no lower extremity edema/swelling, I could not induce the tenderness but the patient mentioned that the pain will come every time he abduct his left hip GI: Abdomen is soft, non-distended. Normal bowel sounds. No masses appreciated. No tenderness to palpation. No rebound, guarding, or rigidity noted. Patient have a right small inguinal hernia that is reducible and it is observed when the patient is coughing but it is soft and nontender, Neurological: A&O x4. No cranial nerve dysfunction observed. Constitutional Vital Signs, click to edit/add: Last Vital Signs Temp 98.1 F 08/03/24 11:45 Pulse 83 08/03/24 11:45 Resp 16 08/03/24 11:45 BP 141/79 08/03/24 11:45 Pulse Ox 96 08/03/24 11:45 O2 Del Method Room Air 08/03/24 11:45 Course Vital Signs Vital signs: Vital Signs Temperature 98.1 F 08/03/24 11:45 Pulse Rate 83 08/03/24 11:45 Respiratory Rate 16 08/03/24 11:45 Blood Pressure 141/79 08/03/24 11:45 Pulse Oximetry 96 08/03/24 11:45 Oxygen Delivery Method Room Air 08/03/24 11:45 Temperature 98.1 F 08/03/24 11:45 Pulse Rate 83 08/03/24 11:45 Respiratory Rate 16 08/03/24 11:45 Blood Pressure 141/79 08/03/24 11:45 Pulse Oximetry 96 08/03/24 11:45 Oxygen Delivery Method Room Air 08/03/24 11:45 MDM - Extremity Injury (Lower) MDM Narrative Medical decision making narrative: X-ray of the hip as well as the pelvis showed no acute pathology The patient was treated in the ER with Toradol Regarding the above groin sprain the patient instructed about rest and continuing NSAID for the next few days The patient also instructed that he can follow-up with orthopedic as outpatient case needed Regarding the patient right inguinal hernia I did explain to him that he have to avoid any reason that could exacerbate the hernia including straining and constipation which he does not have The patient will follow-up with his primary care doctor within a week for further evaluation of his hernia as well The patient is to follow up with primary care physician in next 2-3 days or to return to the emergency department should any of the signs or symptoms worsen or new symptoms develop. The patient agrees with the following Diagnosis and Treatment plan and the patient will be discharged home. Discharge Plan Discharge Chief Complaint: Extremity Injury, Lower Clinical Impression: Sprain of groin, Inguinal hernia Patient Disposition: Home, Self-Care Time of Disposition Decision: 12:59 Condition: Good Prescriptions / Home Meds: New diclofenac sodium 75 mg tablet,delayed release (DR/EC) 75 mg PO BID PRN (Reason: pain) Qty: 20 0RF No Action oxybutynin chloride 5 mg tablet 5 mg PO DAILY lamotrigine 150 mg tablet 150 mg PO DAILY Print Language: Indonesian Instructions: Hip Sprain (ED) Referrals: Kathleen Ambrosio NP [Primary Care Provider] - 1 week Bernabe Guaman MD [Physician] - 1 week Discharge Date/Time: 08/03/24 13:16
== END 2024-08-03 13:16 | disposition home or self-care (01) ==
PROVIDERS: Emergency Provider Emergency Medicine; PCP Nurse Practitioner Family
DX: K40.90 Unilateral inguinal hernia, without obstruction or gangrene, not specified as recurrent (principal); S39.011A Strain of muscle, fascia and tendon of abdomen, initial encounter; X50.3XXA Overexertion from repetitive movements, initial encounter; X50.0XXA Overexertion from strenuous movement or load, initial encounter
CPT/HCPCS: 73523; 96372; 99284; J1885

== ENCOUNTER 2024-08-31 19:50 | Emergency (ER) | payer SELFPAY ==
[2024-08-31 20:38] VITALS: BP 110/60; PULSE 100; TEMP 37.1; O2SAT 96; BMI 32.7
--- NOTE | 2024-08-31 21:32 | ED_ITS ---
Documented by User: Haydee Murdockey 09/02/24 16:07 HPI - Nausea/Vomiting/Diarrhea General Chief complaint: Nausea/Vomiting/Diarrhea Stated complaint: VOMITING, DIARRHEA Time Seen by Provider: 08/31/24 20:40 Source: patient Mode of arrival: walk-in Limitations: no limitations History of Present Illness HPI Narrative: 29-year-old male presents emergency room chief complaint nausea vomiting di arrhea. Patient states he has had the symptoms for the past several days. He states his abdomen is sore but denies tenderness to palpation. Patient is otherwise healthy no acute distress. 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 Patient is generally healthy. Denies fevers or chills. Related Data Home Medications ?Medication ?Instructions ?Recorded ?Confirmed lamotrigine 150 mg tablet 150 mg PO DAILY 03/04/23 08/03/24 oxybutynin chloride 5 mg tablet 5 mg PO DAILY 03/04/23 08/03/24 Previous Rx's ?Medication ?Instructions ?Recorded diclofenac sodium 75 mg 75 mg PO BID PRN pain #20 tabs 08/03/24 tablet,delayed release ondansetron HCl 4 mg tablet 4 mg PO Q8H PRN nausea and 08/31/24 vomiting 3 days #10 tabs Allergies Allergy/AdvReac Type Severity Reaction Status Date / Time No Known Drug Allergies Allergy Verified 08/31/24 20:38 Review of Systems ROS Status of ROS 10 or more systems reviewed and unremark able except as noted in h istory and below PFSH PFSH Social History Smoking status: Never smoker Little interest or pleasure in doing things: not at all Feeling down, depressed, or hopeless: not at all Exam Narrative Exam Narrative: All Systems are negative except as noted/marked.All systems reviewed and otherwise negative Nurses note and vital signs reviewed and patient is not hypoxic. General: The patient appears well and in no apparent distress. Patient is resting comfortably on cart. Skin: Warm, dry, no pallor noted. There is no rash noted. Head: Normocephalic, atraumatic Eye: Normal conjunctiva, no drainage, EOMI. PERRL Ears, Nose, Mouth, and Throat: oral mucosa is moist. Nares patent. Mouth without vesicles. Ear canals patent. Tm's without Erythema Cardiovascular: Regular Rate and Rhythm Respiratory: Patient is in no distress, no accessory muscle use, lungs are clear to auscultation, no wheezing, rales or rhonchi Back: non-tender, no CVA tenderness bilaterally to percussion. GI: Normal bowel sounds, no tenderness to palpation, no masses appreciated. No rebound, guarding, or rigidity noted. Musculoskeletal: The patient has no evidence of calf tenderness, no pitting edema, symmetrical pulses noted bilaterally Neurological: A&O x4, normal speech Psychiatric: Cooperative Constitutional Vital Signs, click to edit/add: Last Vital Signs Temp 98.7 F 08/31/24 20:38 Pulse 88 08/31/24 22:50 Resp 16 08/31/24 22:50 BP 128/80 08/31/24 22:50 Pulse Ox 95 08/31/24 22:50 O2 Del Method Room Air 08/31/24 22:50 Course Vital Signs Vital signs: Vital Signs Temperature 98.7 F 08/31/24 20:38 Pulse Rate 100 H 08/31/24 20:38 Respiratory Rate 20 08/31/24 20:38 Blood Pressure 110/60 08/31/24 20:38 Pulse Oximetry 96 08/31/24 20:38 Oxygen Delivery Method Room Air 08/31/24 20:38 Temperature 98.7 F 08/31/24 20:38 Pulse Rate 88 08/31/24 22:50 Respiratory Rate 16 08/31/24 22:50 Blood Pressure 128/80 08/31/24 22:50 Pulse Oximetry 95 08/31/24 22:50 Oxygen Delivery Method Room Air 08/31/24 22:50 MDM - Nausea/Vomiting/Diarrhea MDM Narrative Medical decision making narrative: 29-year-old male presents emergency room chief complaint nausea vomiting diarrhea. Patient states he has had the symptoms for the past several days. He states his abdomen is sore but denies tenderness to palpation. Patient is otherwise healthy no acute distress. 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 Patient is generally healthy. cbc andcmp with in normal limints trnsition of care to DR Gray Denies fevers or chills. Care transferred at change of shift. Patient feeling better and tolerating PO fluids. Discharged home with a prescription of zofran and Lomotil Differential Diagnosis Differential diagnosis: Likely traveler's diarrhea, food poisoning and gastroenteritis Medical Records Attestation: I reviewed the patient's medical records. Lab Data Attestation: I reviewed the patient's lab results. Labs: Lab Results 08/31/24 Range/Units 21:30 WBC 5.1 (4.0-11.0) 10^3/uL RBC 4.80 (4.70-6.10) 10^6/uL Hgb 14.9 (14.0-18.0) g/dL Hct 41.7 L (42.0-54.0) % MCV 86.9 (80.0-94.0) fL MCH 31.0 (25.9-34.0) pg MCHC 35.7 H (29.9-35.2) g/dL RDW 11.9 (11.0-15.0) % Plt Count 173 (150-450) 10^3/uL MPV 9.4 L (9.5-13.5) fL Neut % (Auto) 56.0 (43.0-75.0) % Lymph % (Auto) 20.8 (20.5-60.0) % [place] % (Auto) 22.4 H (1.7-12.0) % Eos % (Auto) 0.2 L (0.9-7.0) % Baso % (Auto) 0.4 (0.2-2.0) % Neut # (Auto) 2.9 (1.4-6.5) 10^3/uL Lymph # (Auto) 1.1 L (1.2-3.8) 10^3/uL [place] # (Auto) 1.1 H (0.3-0.8) 10^3/uL Eos # (Auto) 0.0 (0.0-0.7) 10^3/uL Baso # (Auto) 0.0 (0.0-0.1) 10^3/uL Abs Immat Gran (auto) 0.01 (0.00-0.03) 10^3/uL Imm/Tot Granulo (auto) 0.2 (0.0-0.5) % Sodium 137 (136-145) mmol/L Potassium 3.4 L (3.5-5.1) mmol/L Chloride 101 (98-107) mmol/L Carbon Dioxide 28.0 (21.0-32.0) mmol/L Anion Gap 11.4 BUN 18.0 (7.0-18.0) mg/dL Creatinine 1.15 (0.70-1.30) mg/dL Est GFR ( Amer) >60 (>=60 mL/min/1.73m^2) Est GFR (Non-Af Amer) >60 (>=60 mL/min/1.73m^2) BUN/Creatinine Ratio 15.7 Glucose 98 (74-106) mg/dL Calcium 8.6 (8.5-10.1) mg/dL Total Bilirubin 0.7 (0.2-1.0) mg/dL AST 24 (15-37) U/L ALT 23 (16-63) U/L Alkaline Phosphatase 66 (46-116) U/L Troponin I High Sens 6.7 (4.0-76.1) pg/mL Total Protein 7.3 (6.4-8.2) g/dL Albumin 3.4 (3.4-5.0) g/dL Globulin 3.9 g/dL Albumin/Globulin Ratio 0.9 Discharge Plan Discharge Chief Complaint: Nausea/Vomiting/Diarrhea Clinical Impression: Gastroenteritis Patient Disposition: Home, Self-Care Condition: Good Mode of Transportation: Private Vehicle Prescriptions / Home Meds: New ondansetron HCl 4 mg tablet 4 mg PO Q8H PRN (Reason: nausea and vomiting) 3 Days Qty: 10 0RF No Action oxybutynin chloride 5 mg tablet 5 mg PO DAILY lamotrigine 150 mg tablet 150 mg PO DAILY diclofenac sodium 75 mg tablet,delayed release (DR/EC) 75 mg PO BID PRN (Reason: pain) Qty: 20 0RF Print Language: Ethiopian Instructions: Gastroenteritis (ED) Additional Instructions: follow up with your family doctor early next week for recheck Referrals: Kathleen Ambrosio NP [Primary Care Provider] - 1 week Discharge Date/Time: 09/01/24 00:01 Documented by User: Glynn Gray MD 08/31/24 23:27 HPI - Nausea/Vomiting/Diarrhea General Chief complaint: Nausea/Vomiting/Diarrhea Stated complaint: VOMITING, DIARRHEA Time Seen by Provider: 08/31/24 20:40 Related Data Home Medications ?Medication ?Instructions ?Recorded ?Confirmed lamotrigine 150 mg tablet 150 mg PO DAILY 03/04/23 08/03/24 oxybutynin chloride 5 mg tablet 5 mg PO DAILY 03/04/23 08/03/24 Previous Rx's ?Medication ?Instructions ?Recorded diclofenac sodium 75 mg 75 mg PO BID PRN pain #20 tabs 08/03/24 tablet,delayed release ondansetron HCl 4 mg tablet 4 mg PO Q8H PRN nausea and 08/31/24 vomiting 3 days #10 tabs Allergies Allergy/AdvReac Type Severity Reaction Status Date / Time No Known Drug Allergies Allergy Verified 08/31/24 20:38 PFSH PFSH Social History Smoking status: Never smoker Little interest or pleasure in doing things: not at all Feeling down, depressed, or hopeless: not at all Exam Constitutional Vital Signs, click to edit/add: Last Vital Signs Temp 98.7 F 08/31/24 20:38 Pulse 88 08/31/24 22:50 Resp 16 08/31/24 22:50 BP 128/80 08/31/24 22:50 Pulse Ox 95 08/31/24 22:50 O2 Del Method Room Air 08/31/24 22:50 Course Vital Signs Vital signs: Vital Signs Temperature 98.7 F 08/31/24 20:38 Pulse Rate 100 H 08/31/24 20:38 Respiratory Rate 20 08/31/24 20:38 Blood Pressure 110/60 08/31/24 20:38 Pulse Oximetry 96 08/31/24 20:38 Oxygen Delivery Method Room Air 08/31/24 20:38 Temperature 98.7 F 08/31/24 20:38 Pulse Rate 88 08/31/24 22:50 Respiratory Rate 16 08/31/24 22:50 Blood Pressure 128/80 08/31/24 22:50 Pulse Oximetry 95 08/31/24 22:50 Oxygen Delivery Method Room Air 08/31/24 22:50 MDM - Nausea/Vomiting/Diarrhea MDM Narrative Medical decision making narrative: 29-year-old male presents emergency room chief complaint nausea vomiting diarrhea. Patient states he has had the symptoms for the past several days. He states his abdomen is sore but denies tenderness to palpation. Patient is otherwise healthy no acute distress. 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 Patient is generally healthy. Denies fevers or chills. care transferred at change of shift. Patient feeling better and tolerating PO fluids. Discharged home with a prescription of zofran and Lomotil Lab Data Labs: Lab Results 08/31/24 Range/Units 21:30 WBC 5.1 (4.0-11.0) 10^3/uL RBC 4.80 (4.70-6.10) 10^6/uL Hgb 14.9 (14.0-18.0) g/dL Hct 41.7 L (42.0-54.0) % MCV 86.9 (80.0-94.0) fL MCH 31.0 (25.9-34.0) pg MCHC 35.7 H (29.9-35.2) g/dL RDW 11.9 (11.0-15.0) % Plt Count 173 (150-450) 10^3/uL MPV 9.4 L (9.5-13.5) fL Neut % (Auto) 56.0 (43.0-75.0) % Lymph % (Auto) 20.8 (20.5-60.0) % [place] % (Auto) 22.4 H (1.7-12.0) % Eos % (Auto) 0.2 L (0.9-7.0) % Baso % (Auto) 0.4 (0.2-2.0) % Neut # (Auto) 2.9 (1.4-6.5) 10^3/uL Lymph # (Auto) 1.1 L (1.2-3.8) 10^3/uL [place] # (Auto) 1.1 H (0.3-0.8) 10^3/uL Eos # (Auto) 0.0 (0.0-0.7) 10^3/uL Baso # (Auto) 0.0 (0.0-0.1) 10^3/uL Abs Immat Gran (auto) 0.01 (0.00-0.03) 10^3/uL Imm/Tot Granulo (auto) 0.2 (0.0-0.5) % Sodium 137 (136-145) mmol/L Potassium 3.4 L (3.5-5.1) mmol/L Chloride 101 (98-107) mmol/L Carbon Dioxide 28.0 (21.0-32.0) mmol/L Anion Gap 11.4 BUN 18.0 (7.0-18.0) mg/dL Creatinine 1.15 (0.70-1.30) mg/dL Est GFR ( Amer) >60 (>=60 mL/min/1.73m^2) Est GFR (Non-Af Amer) >60 (>=60 mL/min/1.73m^2) BUN/Creatinine Ratio 15.7 Glucose 98 (74-106) mg/dL Calcium 8.6 (8.5-10.1) mg/dL Total Bilirubin 0.7 (0.2-1.0) mg/dL AST 24 (15-37) U/L ALT 23 (16-63) U/L Alkaline Phosphatase 66 (46-116) U/L Troponin I High Sens 6.7 (4.0-76.1) pg/mL Total Protein 7.3 (6.4-8.2) g/dL Albumin 3.4 (3.4-5.0) g/dL Globulin 3.9 g/dL Albumin/Globulin Ratio 0.9 Discharge Plan Discharge Chief Complaint: Nausea/Vomiting/Diarrhea Clinical Impression: Gastroenteritis Patient Disposition: Home, Self-Care Condition: Good Mode of Transportation: Private Vehicle Prescriptions / Home Meds: New ondansetron HCl 4 mg tablet 4 mg PO Q8H PRN (Reason: nausea and vomiting) 3 Days Qty: 10 0RF No Action oxybutynin chloride 5 mg tablet 5 mg PO DAILY lamotrigine 150 mg tablet 150 mg PO DAILY diclofenac sodium 75 mg tablet,delayed release (DR/EC) 75 mg PO BID PRN (Reason: pain) Qty: 20 0RF Print Language: Ethiopian Instructions: Gastroenteritis (ED) Additional Instructions: follow up with your family doctor early next week for recheck Referrals: Kathleen Ambrosio NP [Primary Care Provider] - 1 week Discharge Date/Time: 09/01/24 00:01
[2024-08-31] MEDS: 0.9 % SODIUM CHLORIDE 1,000 ML 999 ML IV (21:35)
[2024-08-31] MEDS: ONDANSETRON PF 4 MG/2 ML VIAL IV (21:36)
[2024-08-31 22:01] LABS: Basophils Percent Auto 0.4 % (0.2-2.0); Eosinophils Percent Auto 0.2 % (0.9-7.0); Hematocrit 41.7 % (42.0-54.0); Hemoglobin 14.9 g/dL (14.0-18.0); Immature Granulocytes Abs Auto 0.01 10^3/uL (0.00-0.03); Immature Granulocytes Pct Auto 0.2 % (0.0-0.5); Lymphocytes Absolute Auto 1.1 10^3/uL (1.2-3.8); Lymphocytes Percent Auto 20.8 % (20.5-60.0); Mean Corpuscular HGB Conc 35.7 g/dL (29.9-35.2); Mean Corpuscular Volume 86.9 fL (80.0-94.0); Mean Platelet Volume 9.4 fL (9.5-13.5); Monocytes Absolute Auto 1.1 10^3/uL (0.3-0.8); Monocytes Percent Auto 22.4 % (1.7-12.0); Neutrophils Absolute Auto 2.9 10^3/uL (1.4-6.5); Platelet Count 173 10^3/uL (150-450); Red Cell Distribution Width 11.9 % (11.0-15.0); White Blood Count 5.1 10^3/uL (4.0-11.0)
[2024-08-31 22:21] LABS: Alanine Aminotransferase 23 U/L (16-63); Albumin Globulin Ratio 0.9; Albumin Level 3.4 g/dL (3.4-5.0); Alkaline Phosphatase 66 U/L (46-116); Anion Gap 11.4; Aspartate Amino Transferase 24 U/L (15-37); BUN Creatinine Ratio 15.7; Bilirubin Total 0.7 mg/dL (0.2-1.0); Calcium 8.6 mg/dL (8.5-10.1); Chloride 101 mmol/L (98-107); Estimated GFR (African America >60 (>=60 mL/min/1.73m^2); Estimated GFR (Non-African Ame >60 (>=60 mL/min/1.73m^2); Globulin 3.9 g/dL; Glucose 98 mg/dL (74-106); Potassium 3.4 mmol/L (3.5-5.1); Sodium 137 mmol/L (136-145); Total Protein 7.3 g/dL (6.4-8.2); Troponin I High Sensitivity 6.7 pg/mL (4.0-76.1)
[2024-08-31 22:50] VITALS: BP 128/80; PULSE 88; O2SAT 95
[2024-08-31] MEDS: ONDANSETRON 4 MG RAPDIS TABLET SL (23:58)
== END 2024-09-01 00:01 | disposition home or self-care (01) ==
PROVIDERS: Physician Assistant; Emergency Provider Internal Medicine; PCP Nurse Practitioner Family
DX: K52.9 Noninfective gastroenteritis and colitis, unspecified (principal)
CPT/HCPCS: 36415; 80053; 84484; 85025; 87045; 87046; 87427; 96361; 96374; 99284; J2405; Q0162